=== PATIENT | male | born 1960 | race Caucasian/White ===

== ENCOUNTER → 2017-06-29 | Outpatient (CLI) | payer OTHER ==
[2017-06-29 19:16] LABS: ALBUMIN 3.8 gm/dl (3.4-5.0); TOTAL PROTEIN 7.7 gm/dl (6.4-8.2)
== END | disposition home or self-care (01) ==
LOC: C.LABMFLN 12:00
PROVIDERS: ATTEND Family Medicine
DX: R74.8 Abnormal levels of other serum enzymes (principal)

== ENCOUNTER → 2017-07-28 | Outpatient (CLI) | payer OTHER ==
[2017-07-28 18:11] LABS: BASO % 0.5 %; BASO ABS # 0.03 K/uL (0-0.2); EOS % 1.2 %; EOS ABS # 0.08 K/uL (0-0.5); HEMATOCRIT 40.6 % (42-52); HEMOGLOBIN 13.6 g/dL (14.0-18.0); IG# 0.01 K/uL (0.00-0.02); LYMPH % 29.2 %; LYMPH ABS # 1.87 K/uL (1.2-3.4); MEAN CELL VOLUME 95.3 fL (80-100); MEAN CORPUSCULAR HEMOGLOBIN 31.9 pg (25-34); MEAN CORPUSCULAR HGB CONC 33.5 g/dl (32-36); MEAN PLATELET VOLUME 11.1 fL (7.4-10.4); MONO % 8.7 %; MONO ABS # 0.56 K/uL (0.11-0.59); NEUT % 60.2 %; NEUT ABS # 3.86 K/uL (1.4-6.5); PLATELET COUNT 198 K/uL (130-400); RED CELL DISTRIBUTION WIDTH CV 12.9 % (11.5-14.5); RED CELL DISTRIBUTION WIDTH SD 44.5 fL (36.4-46.3); WHITE BLOOD COUNT 6.41 K/uL (4.8-10.8)
[2017-07-28 18:32] LABS: ALBUMIN 3.6 gm/dl (3.4-5.0); ALT/SGPT 20 U/L (12-78); AST/SGOT 18 U/L (15-37); BLOOD UREA NITROGEN 7 mg/dl (7-18); CALCIUM 9.7 mg/dl (8.5-10.1); CARBON DIOXIDE 26 mmol/L (21-32); CHOLESTEROL 212 mg/dl (0-200); CREATININE 0.81 mg/dl (0.60-1.40); GLUCOSE 94 mg/dl (70-99); POTASSIUM 3.6 mmol/L (3.5-5.1); SODIUM 136 mmol/L (136-145)
[2017-07-28 18:35] LABS: ALKALINE PHOSPHATASE 81 U/L (45-117); LDL CHOLESTEROL CALCULATED 156 mg/dl; TOTAL PROTEIN 7.8 gm/dl (6.4-8.2)
[2017-07-29 06:30] LABS: HEMOGLOBIN A1C 5.6 % (4.5-5.6)
== END | disposition home or self-care (01) ==
LOC: C.LABMFLN 10:43
PROVIDERS: ATTEND Family Medicine
DX: J34.89 Other specified disorders of nose and nasal sinuses (principal); E87.1 Hypo-osmolality and hyponatremia; E78.5 Hyperlipidemia, unspecified; I73.9 Peripheral vascular disease, unspecified; R73.09 Other abnormal glucose

== ENCOUNTER → 2017-08-25 | Outpatient (CLI) | payer OTHER ==
[2017-08-25 12:36] LABS: BASO % 0.8 %; BASO ABS # 0.05 K/uL (0-0.2); EOS % 2.4 %; EOS ABS # 0.15 K/uL (0-0.5); HEMATOCRIT 37.4 % (42-52); HEMOGLOBIN 13.2 g/dL (14.0-18.0); IG# 0.01 K/uL (0.00-0.02); LYMPH % 40.1 %; LYMPH ABS # 2.49 K/uL (1.2-3.4); MEAN CELL VOLUME 91.7 fL (80-100); MEAN CORPUSCULAR HEMOGLOBIN 32.4 pg (25-34); MEAN CORPUSCULAR HGB CONC 35.3 g/dl (32-36); MEAN PLATELET VOLUME 11.1 fL (7.4-10.4); MONO % 7.4 %; MONO ABS # 0.46 K/uL (0.11-0.59); NEUT % 49.1 %; NEUT ABS # 3.05 K/uL (1.4-6.5); PLATELET COUNT 169 K/uL (130-400); RED CELL DISTRIBUTION WIDTH CV 13.2 % (11.5-14.5); RED CELL DISTRIBUTION WIDTH SD 43.9 fL (36.4-46.3); WHITE BLOOD COUNT 6.21 K/uL (4.8-10.8)
== END | disposition home or self-care (01) ==
LOC: C.LABMFLN 09:10
PROVIDERS: ATTEND Family Medicine
DX: E78.5 Hyperlipidemia, unspecified (principal)

== ENCOUNTER → 2017-11-19 | Outpatient (CLI) | payer OTHER ==
[2017-11-19 13:18] LABS: BASO ABS # 0.08 K/uL (0-0.2); EOS % 3.4 %; EOS ABS # 0.26 K/uL (0-0.5); HEMATOCRIT 37.7 % (42-52); HEMOGLOBIN 12.6 g/dL (14.0-18.0); IG# 0.01 K/uL (0.00-0.02); LYMPH % 28.9 %; LYMPH ABS # 2.21 K/uL (1.2-3.4); MEAN CELL VOLUME 94.5 fL (80-100); MEAN CORPUSCULAR HEMOGLOBIN 31.6 pg (25-34); MEAN CORPUSCULAR HGB CONC 33.4 g/dl (32-36); MEAN PLATELET VOLUME 11.2 fL (7.4-10.4); MONO % 6.4 %; MONO ABS # 0.49 K/uL (0.11-0.59); NEUT % 60.2 %; PLATELET COUNT 177 K/uL (130-400); RED CELL DISTRIBUTION WIDTH CV 14.1 % (11.5-14.5); RED CELL DISTRIBUTION WIDTH SD 48.9 fL (36.4-46.3); WHITE BLOOD COUNT 7.65 K/uL (4.8-10.8)
[2017-11-19 13:46] LABS: ALBUMIN 4.1 gm/dl (3.4-5.0); ALKALINE PHOSPHATASE 80 U/L (45-117); ALT/SGPT 15 U/L (12-78); AST/SGOT 16 U/L (15-37); BLOOD UREA NITROGEN 9 mg/dl (7-18); CALCIUM 9.1 mg/dl (8.5-10.1); CARBON DIOXIDE 26 mmol/L (21-32); CREATININE 0.71 mg/dl (0.60-1.40); GLUCOSE 91 mg/dl (70-99); POTASSIUM 4.2 mmol/L (3.5-5.1); SODIUM 132 mmol/L (136-145); TOTAL PROTEIN 8.2 gm/dl (6.4-8.2)
== END | disposition home or self-care (01) ==
LOC: C.LABMFLN 10:15
PROVIDERS: ATTEND Family Medicine
DX: R63.4 Abnormal weight loss (principal); R74.8 Abnormal levels of other serum enzymes; D50.0 Iron deficiency anemia secondary to blood loss (chronic); M25.519 Pain in unspecified shoulder

== ENCOUNTER → 2017-12-23 | Outpatient (CLI) | payer OTHER ==
[2017-12-23 12:51] LABS: BASO % 0.9 %; BASO ABS # 0.06 K/uL (0-0.2); EOS % 1.6 %; EOS ABS # 0.11 K/uL (0-0.5); HEMATOCRIT 38.9 % (42-52); IG# 0.02 K/uL (0.00-0.02); LYMPH % 33.3 %; LYMPH ABS # 2.32 K/uL (1.2-3.4); MEAN CELL VOLUME 92.6 fL (80-100); MEAN CORPUSCULAR HGB CONC 33.4 g/dl (32-36); MEAN PLATELET VOLUME 10.7 fL (7.4-10.4); MONO % 6.3 %; MONO ABS # 0.44 K/uL (0.11-0.59); NEUT % 57.6 %; NEUT ABS # 4.01 K/uL (1.4-6.5); PLATELET COUNT 171 K/uL (130-400); RED CELL DISTRIBUTION WIDTH CV 13.5 % (11.5-14.5); RED CELL DISTRIBUTION WIDTH SD 45.7 fL (36.4-46.3); WHITE BLOOD COUNT 6.96 K/uL (4.8-10.8)
[2017-12-23 13:25] LABS: ALKALINE PHOSPHATASE 79 U/L (45-117); ALT/SGPT 24 U/L (12-78); AST/SGOT 17 U/L (15-37); BLOOD UREA NITROGEN 15 mg/dl (7-18); CALCIUM 9.4 mg/dl (8.5-10.1); CARBON DIOXIDE 26 mmol/L (21-32); CHOLESTEROL 160 mg/dl (0-200); CREATININE 0.74 mg/dl (0.60-1.40); GLUCOSE 100 mg/dl (70-99); LDL CHOLESTEROL CALCULATED 95 mg/dl; POTASSIUM 3.9 mmol/L (3.5-5.1); SODIUM 135 mmol/L (136-145); TOTAL PROTEIN 7.9 gm/dl (6.4-8.2)
== END | disposition home or self-care (01) ==
LOC: C.LABMFLN 08:29
PROVIDERS: ATTEND Family Medicine
DX: D50.0 Iron deficiency anemia secondary to blood loss (chronic) (principal); E78.5 Hyperlipidemia, unspecified; M79.1 Myalgia

== ENCOUNTER 2025-02-10 08:16 | Observation (INO) ==
--- NOTE | 2025-02-10 09:44 | Post Anesthesia Assessment ---
Date of Service February 10, 2025 Post Sedation Assessment Vital Signs Temp Pulse Resp BP Pulse Ox O2 Del Method 02/10/25 08:27 97.7 F 56 L 16 173/63 H 98 Room Air Recovery Score Activity: Moves 4 extremities Respiration: Deep Breath/Cough Circulation: +/-20% PreAnes Value Consciousness: Fully Awake Oxygen Saturation: O2 needed for >90% Discharge Sedation Level of Care: Fast Track Phase II
--- NOTE | 2025-02-10 09:49 | Endovascular Procedure Note ---
PG Endovascular Procedure Rpt Pre & Post Diagnosis Peripheral arterial disease I identified the patient and participated in the time-out.: Yes Procedure Aortogram Bilateral lower extremity angiography Angioplasty distal SFA/popliteal with intravascular lithotripsy and drug-eluting balloon Closure device placement Moderate sedation Surgeon Thang Wei MD Aluminum Boats Assembler Durga Estimated Blood Loss 25 Findings See Below Abdominal aorta--no significant aneurysmal or stenotic disease Right lower extremity-- -Common iliacwidely patent -External iliacwidely patent -Internal iliacwidely patent -TRANSFERRER, profunda widely patent -SFAmild diffuse disease with focal, calcified 90% distal stenosis -Poplitealmild diffuse disease -ATApatent -PTApatent -Peronealpatent Left lower extremity-- -Common iliacwidely patent -External iliacwidely patent -Internal iliacwidely patent -TRANSFERRER, profunda widely patent -SFAmild diffuse disease, 98% focal calcified distal stenosis -Poplitealmild to moderate proximal to mid disease up to 40% -ATA75% ostial, 90% proximal. Distal vessel fills briskly just above the ankle via collaterals from peroneal -PTAwidely patent into the foot -Peronealwidely patent in the ankle and provides collaterals to SHYAM -DPAwidely patent into the forefoot, medial/lateral plantar arteries patent with intact pedal arch Anesthesia Type RN Sedation Radiation Exposure (mGv) Radiation (mGy): 410 Contrast Contrast: 100 Complications none Disposition Accompanied Patient To Recovery: No Disposition: Turntable Operator Holding Description of Procedure Right TRANSFERRER access obtained under ultrasound guidance, short 5Fr sheath placed Abdominal aortogram and proximal left lower extremity angiogram performed with RIM catheter. Selective angiography with quick cross catheter placed in left mid SFA 6 Fr 65 cm destination sheath placed from right TRANSFERRER to left SFA. Distal SFA stenosis crossed with 0.14 command wire and quick cross support catheter. Angioplasty of distal SFA/popliteal with 3.0 balloon Left distal SFA/proximal popliteal dilated with 5.0 intravascular lithotripsy (shockwave, 320 pulses). [] stented with Post procedure good angiographic result, no evidence of dissection and brisk [] vessel run-off. Contrast used: [] Moderate sedation: [] Access closure: [] Summary: 1. [] lower extremity -- [] 2. [] extremity -- [] 3. Successful angioplasty/atherectomy/Supera stent placement to []. Final result: [] Recommendations: Continue DAPT with ASA/Clopidogrel for 1 months Follow-up non-invasive vascular testing in 2 weeks. I attest to the content of the Intraoperative Record and any orders documented therein. Any exceptions are noted below.
--- NOTE | 2025-02-10 09:53 | Pre Anesthesia Assessment ---
Date of Service February 10, 2025 Pre Sedation Assessment Vital Signs Temp Pulse Resp BP Pulse Ox O2 Del Method 02/10/25 08:27 97.7 F 56 L 16 173/63 H 98 Room Air Cardiovascular + regular rate Respiratory + respiratory effort normal Pre-Sedation Airway Assessment Smoking Status: Never smoker Hx Sleep Apnea: No Short, Thick Neck: No Thyromental Distance: > or= 3.5 Finger Breadths Oral Cavity: + WNL Mallampati Class: III ASA: ASA3 NPO Status Date of Last Intake of Fluids: 02/09/25 Time of Last Intake of Fluids: 20:00 Date of Last Intake of Solid Food: 02/09/25 Time of Last Intake of Solid Foods: 20:00 Procedure Planning Contraindications for Sedation: none Current Medications Reviewed: Yes Notes The planned sedation has been discussed with the patient. Informed Consent was obtained. I have identified the patient, determined the appropriateness of sedation and have assessed the patient immediately prior to the procedure. All medicine(s) and interventions are by my order.
--- NOTE | 2025-02-10 09:53 | History & Physical Bridge Note ---
Date of Service February 10, 2025 History & Physical Bridge Note I have examined the patient, reviewed the History & Physical and in the interval since the performance of the History & Physical I have noted the following changes of clinical significance: no changes noted
[2025-02-10] MEDS: HEPARIN (PORCINE) 1000 UNIT/ML 10 ML (CATH LAB USE ONLY) ONE ×2 (13:20→13:22)
[2025-02-10] MEDS: OPTIRAY 350 ONE (13:20)
[2025-02-10] MEDS: MIDAZOLAM HCL 1 MG/ML 2ML VIAL ONE ×4 (13:20→13:22)
[2025-02-10] MEDS: niCARdipine 2,000 MCG/20 ML SYR ONE (13:21)
[2025-02-10] MEDS: NITROGLYCERIN/D5W 100MCG/ML 20ML SYR ONE (13:21)
[2025-02-10] MEDS: CLOPIDOGREL BISULFATE 300 MG TAB ONE (13:30)
[2025-02-10] MEDS: MoRPHine SULFATE 2 MG/ML CARP ONE (13:40)
[2025-02-10] MEDS: ACETAMINOPHEN 500 MG TAB ONE (13:40)
[2025-02-10] MEDS ORDERED: ATROPINE SULFATE 0.1 MG/ML 10ML SYR IV PRN (14:09)
[2025-02-10] MEDS ORDERED: NITROGLYCERIN SL 0.4 MG/TAB TAB SL PRN (14:09)
[2025-02-10] MEDS ORDERED: ALUMINUM/MAGNESIUM SUSP 30 ML UDC PO PRN (14:09)
[2025-02-10] MEDS ORDERED: MELATONIN 3 MG TAB PO PRN (14:09)
--- NOTE | 2025-02-10 14:09 | Cardiac Catheterization ---
[facility] Data: Pipe Roller Cardiac Status Clinical evaluation leading to the procedure CAD Presenation: Stable angina Diagnostic Physicians Name: Thang Wei MD Closure Device Recommendations: PCI without planned CABG Cardiac Cath Procedure Full Procedure Date February 10, 2025 Pre-Procedure Diagnosis Pre-Procedure Diagnosis: Angina and Arrhythmia AUC Score AUC Score: 7 Post-Procedure Diagnosis Post-Procedure Diagnosis: Severe CAD and Normal Intracardiac Pressures Procedure(s) Performed Procedure(s) Performed: Coronary Angiography, Left Heart Cath, Drug Eluting Stent, IVUS and Procedure (Intravascular lithortripsy) Analytical Statistician Thang Wei MD Cap Cutter(s) Showers Estimated Blood Loss Estimated Blood Loss: 30 Medication(s) Medication(s): Clopidogrel, Fentanyl, Heparin, Lidocaine 1%, Nicardipine, Nitroglycerin and Versed Summary of Findings Indication: Exertional angina, fatigue, presyncope. Exercise-induced 2-1 AV block Access: 6 Fr slender right radial artery, 6 Fr right CFV Catheters: [place], EBU 3.5 guide, JR4 guide, hockey-stick guide Findings: LM -normal caliber, eccentric calcified plaque in distal segment with 30% stenosis extending into circumflex ostium LAD -moderate caliber, 30% proximal, 30% mid segment disease. Distal vessel ext ends around apex. D2 without significant disease. Circumflex -medium caliber, hazy ostial 40% stenosis consistent with calcified eccentric plaque. Medium/distal AV groove circumflex without significant disease. Medium OM2 without disease. RCA -dominant, medium caliber, heavily calcified, 95% ostial, 90% proximal stenosis. 70% mid stenosis at takeoff of acute marginal. 40% latemid into distal disease. Small RPDA with 50% ostial stenosis. Right PLB without disease. LVEDP -10 IVUS of left main/ostial circumflex/ostial LAD Left main cannulated with EBU 3.5 guide BMW wire placed into distal circumflex Ayoub IVUS catheter placed to mid circumflex. Pullback revealed eccentric moderate (<40%) calcified plaque at ostium extending back to distal left main. LMCA with concentric calcified disease <30% in distal segment. Calcified ostial LMCA <30%. BMW wire removed from circumflex and redirected into LAD. IVUS catheter placed to mid LAD and pullback revealed diffuse mild calcified disease. No significant LAD ostial disease. Catheter/wire removed. Repeat angiography revealed no apparent complications. Decision to proceed with PCI of RCA. -- PCI of RCA-- Antithrombotic therapy: Heparin, clopidogrel Procedure: RCA cannulated with JR4 guide Pre-procedure flow TRACEE 3 6 Fr sheath placed into right CFV in case need of temporary pacing. Financial Reporting Advisor 50 wire passed across lesion into distal vessel Mid RCA lesion and proximal/ostial RCA predilated with 2.0 and 2.5 compliant balloons Mid RCA and proximal/ostial RCA further dilated with intravascular lithotripsy (shockwave, 100 pulses). Mid RCA stented with 3.0 x 15 mm [place] drug-eluting stent Ostial/proximal RCA stented with 3.0 x 18 mm Xience drug-eluting stent Stents post-dilated with 3.5 noncompliant balloon IC vasodilators administered for spasm With attempt at repeat IVUS, wire pulled back into aorta Stent/RCA eventually rewired through hockey-stick guide with new car pilot 50 wire Proximal/ostial RCA stent further postdilated with 4.0 NC balloon Repeat IVUS showed well-expanded, well apposed stent with stent struts extending back across ostium just into aorta Attempt made to further dilate with 4.0 ostial flash balloon Post procedure TRACEE 3 flow, stents well expanded with minimal residual stenosis and no apparent cardiac complications. Arterial Closure: TR band. Venous closure with 6 Fr Mynx Summary: 1. Multivessel coronary artery disease - 95% ostial/proximal RCA, 75% mid RCA 20-30% ostial and distal left main, 40% eccentric/calcified ostial circumflex (nonobstructive by IVUS). 2. Normal intracardiac filling pressure 3. Successful PCI of ostial/proximal RCA with intravascular lithotripsy and single drug-eluting stent (3.0 x 18 mm Xience; postdilated with 4.0 NC and ostial flash balloon). 4. Successful PCI of mid RCA with intravascular lithotripsy and single drug- eluting stent (3.0 x 15 mm [place]; postdilated with 3.5 NC). Recommendations: To PCU for continued monitoring Loaded with clopidogrel 600 mg in Pipe Roller Continue dual-antiplatelet therapy for at least 1 year Continue statin, and ASCVD risk factor modification Hemodynamics Rest Ao:: 100/56/52 Final Ao: 138/69/90 LV: 115/10 Recommendations Recommendations: PCI without planned CABG Radiation Exposure (mGy) 4472 Contrast (mls) 225 Anesthesia Moderate [id number] Procedural Complication(s) None Disposition PCU I attest to the content of the Intraoperative Record and any orders documented therein. Any exceptions are noted below. [facility] Card Cath Procedure Codes Cardiac Catheterization Procedure 1: Cardiovascular Cath Procedures: 38631 Coronaries and LHC (+/-LV) Therapeutic Services & Ancillary Procedure 1: Cardiovascular Tx and Anc Procedures: 32083 IV Ultrasound (Coronary or Graft) Procedure 2: Cardiovascular Tx and Anc Procedures: 21543 IV Ultrasound Ea addl vessel Procedure 3: Cardiovascular Tx and Anc Procedures: 09380 IV Ultrasound Ea addl vessel Moderate Sedation Procedure 1: Sedation/Anesthesia: 20025 Mod Sedation by the same physician;Init15 Min Child Age 5 & Up Procedure 2: Sedation/Anesthesia: 50139 Mod Sedation by the same physician; Ea [id number] Minutes Angioplasty Procedure 1: Cardiovascular Angioplasty Procedures: 40898 Perq Trluml Coronry Lithotrp Stenting Procedure 1: Cardiovascular Stent Procedures: 79294 Perc transcatheter placement of intracoronary stent(s), with ang PG Care Time/CCT Total # of Minutes Spent Total Time Spent with Patient: Total time spent is greater than 50% in coordination of care (as documented) at patient's floor/unit and/or counseling patient:
[2025-02-10] MEDS: ONDANSETRON INJ 2 MG/ML 2 ML VIAL IV PRN (17:25)
[2025-02-10] MEDS: SODIUM CHLORIDE 0.9% 1,000 ML IV SCH (17:45)
[2025-02-10] MEDS: SODIUM CHLORIDE 0.9% 500 ML IV ONE (18:21)
[2025-02-11] MEDS: CLOPIDOGREL BISULFATE 75 MG TAB PO SCH (08:00)
[2025-02-11] MEDS: ASPIRIN 81 MG ECTAB PO SCH (08:00)
[2025-02-11] MEDS: GABAPENTIN 300 MG CAP PO SCH (08:00)
[2025-02-11] MEDS: ATORVASTATIN 40 MG TAB PO SCH (08:00)
[2025-02-11 08:14] LABS: Hematocrit (blood only) 38.2 % (42.0-52.0); Hemoglobin 12.4 g/dl (14.0-18.0); Immature Granulocytes # (auto) 0.04 K/uL (0.01-0.20); Immature Granulocytes % (auto) 0.4 %; Mean Corpuscular Hemoglobin 29.2 pg (25.0-34.0); Mean Corpuscular Volume 89.9 fL (80.0-100.0); Platelet Count 146 K/uL (130-400); RDW Standard Deviation 45.2 fL (36.4-46.3); Red Blood Count 4.25 M/uL (4.70-6.10); White Blood Count 8.93 K/ul (4.8-10.8)
[2025-02-11 08:29] LABS: Anion Gap 5.0 (3-11); Blood Urea Nitrogen 13.0 mg/dl (6-23); Calcium 9.0 mg/dl (8.6-10.3); Carbon Dioxide 29.0 mmol/L (21-32); Chloride 102.0 mmol/L (98-107); Creatinine Clr Calc Pharmacy 89.6 ml/min; Glucose 120.0 mg/dl (70-99(Fasting)); Potassium 4.2 mmol/L (3.5-5.1); Sodium 136.0 mmol/L (136-145)
[2025-02-11] MEDS ORDERED: LOSARTAN POTASSIUM 25 MG TAB PO SCH (09:00)
--- NOTE | 2025-02-11 10:55 | Cardiology Consultation ---
Date of Consultation February 11, 2025 History of Present Illness Reason for Consultation: Adams Hobbs is a 64 year old male with PMHx abnormal treadmill stress test with 2:1 AV block with exertion, sinus bradycardia, HTN, HLD, PAD s/p aortofemoral 2018 known L SFA occlusion, reformed tobacco use, COPD who presented to [facility] yesterday for planned cardiac catheterization for evaluation of 2:1 AV block during treadill exercise stress test on 02/03/2025. Cardiac CATH yesterday with DR Wei revealed 95% ostial/proximal RCA occlusion 75% mid RCA occlusion with successful KELLEY x1 ostial/proximal RCA with intravascular lithotripsy and KELLEY x1 to mid RCA with intravascular lithotripsy. Attending Physician: Thang Wei MD Allergies Allergy/AdvReac Type Severity Reaction Status Date / Time No Known Allergies Allergy Unverified 01/27/25 15:34 Home Medications Medication Instructions Recorded Confirmed Type aspirin 81 mg tablet,delayed 81 mg PO DAILY #90 tabs 12/06/18 02/10/25 Rx release albuterol sulfate 90 mcg/actuation 2 puff inhalation Q6H PRN 10/02/21 02/10/25 Rx aerosol inhaler (Ventolin HFA) shortness of breath or wheezing #18 grams losartan 25 mg tablet 25 mg PO DAILY #90 tabs 03/02/24 02/10/25 Rx umeclidinium 62.5 mcg/actuation 1 inh inhalation DAILY 08/31/24 02/10/25 History blister powder for inhalation (Incruse Ellipta) gabapentin 300 mg capsule 300 mg PO DAILY #90 caps 11/10/24 02/10/25 Rx pravastatin 20 mg tablet 20 mg PO DAILY #90 tabs 01/04/25 02/10/25 Rx pravastatin 40 mg tablet 40 mg PO DAILY #90 tabs 01/19/25 02/10/25 Rx atorvastatin 40 mg tablet 40 mg PO QAM #30 tabs 02/11/25 Rx clopidogrel 75 mg tablet 75 mg PO QAM #30 tabs 02/11/25 Rx Patient History Medical History COPD exacerbation No pertinent family history Prophylactic vaccination against streptococcus pneumoniae and influenza Nevus, atypical Myalgia Elevated liver enzymes Blood loss anemia Surgical History H/O right inguinal hernia repair S/P aortobifemoral bypass surgery Family History Brother Congenital kidney disease Mother Stroke Dyslipidemia Father Lung disease Social History Smoking Status: Never smoker Tobacco Type: Cigarettes and E-cigarettes / Vaping Age Started Using Tobacco: 16; Age Quit Using Tobacco: 57; packs per day: 2.5; Cigarettes Per Day: 80-110 pack years; Hx Alcohol Use: No Hx Substance Use: No Preferred Language: Macanese Communication Ability: Effective Recruiter Coordinator Required: No Beliefs That Will Affect Care: None marital status: Current Living Situation: Spouse How many Children do You have: 0 Feels Safe at Home: Yes Safety Concerns: Feels Safe At This Time Assistive Devices: None Results & Data Vital Signs (Past 12 Hours) Vital Signs Temp Pulse Pulse Resp BP Pulse Ox O2 Del Method 02/11/25 08:00 36.3 C L 79 16 105/57 L 97 Room Air 02/11/25 07:33 51 L 02/11/25 03:30 36.6 C 69 16 93/54 L 95 Room Air 02/10/25 23:24 36.7 C 68 16 101/50 L 95 Room Air Diagnostic Findings CARDIA CATH Dr Wei 02/10/2025 1. Multivessel CAD - 95% ostial/proximal RCA occlusion 75% mid RCA -20-30% ostial and distal left main, 40% eccentric/calcified ostial circumflex (nonobstructive by IVUS) 2. Normal intracardiac filling pressure 3. successful PCI to ostial/proximal RCA with intravascular lithotripsy and KELLEY x1 4. Successful PCI to mid RCA with intravascular lithotripsy and single KELLEY Treadmill stress test 02/03/2025 Abnormal treadill stress tset as patient went to 2:1 AV block at 3 minutes 30 seconds into exercise PG Care Time/CCT Total # of Minutes Spent Total Time Spent with Patient: Total time spent is greater than 50% in coordination of care (as documented) at patient's floor/unit and/or counseling patient: Coding
--- NOTE | 2025-02-11 11:20 | Discharge Summary ---
Date of Service February 11, 2025 Admission HPI Per Admitting Provider Mr. Hobbs is a very pleasant 64-year-old man with a history of peripheral arterial disease post aortobifem bypass, COPD, reformed tobacco abuse, dyslipidemia, hypertension who was referred for cardiac catheterization by Dr. Barrera. He is followed by Dr. Cho for primary care. Recently seen for recurrent near syncopal episodes. Underwent stress test on which was shown to have 2-1 AV block. Cardiac catheterization recommended prior to possible pacemaker. Discharge Data Procedures Performed Operation Date: 02/10/25 09:30 Actual Procedures p Cath, Left with Cors and Vent - Thang Wei MD p Drug Eluting Stent SGl Vessel - Thang Wei MD s Cineradiography w/Routine Exam - MD machelle Ramos IVUS Coronary Single Vessel - Thang Wei MD Hospital Course (1) CAD (coronary artery disease): Patient underwent left heart catheterization/coronary angiography via right radial artery. Findings: 1. Multivessel coronary artery disease - 95% ostial/proximal RCA, 75% mid RCA 20-30% ostial and distal left main, 40% eccentric/calcified ostial circumflex (nonobstructive by IVUS). 2. Normal intracardiac filling pressure 3. Successful PCI of ostial/proximal RCA with intravascular lithotripsy and single drug-eluting stent (3.0 x 18 mm Xience; postdilated with 4.0 NC and ostial flash balloon). 4. Successful PCI of mid RCA with intravascular lithotripsy and single drug- eluting stent (3.0 x 15 mm [place]; postdilated with 3.5 NC). Postprocedure he was admitted for observation. Initially postprocedure had >4- second asymptomatic pause on telemetry in the setting of diaphoresis/nausea and hypotension to 80s. Event thought to be vasovagal and responded to IV fluids/antiemetics. For the remainder of hospital course remained electrically stable with only sinus bradycardia and frequent PACs. He remained chest pain- free during hospital course. On day of discharge he was feeling well. Walked in the halls and endorsed improved exertional shortness of breath. No chronotropic incompetence with w alking. No apparent access site complications. Postprocedure hemoglobin 12.4 down from 13.5 6 months ago. Renal function stable. He was discharged to home on DAPT with aspirin, clopidogrel. With borderline blood pressures in the 90s to low 100s losartan was held. His pravastatin was switched to atorvastatin 40 mg daily. Recommend targeting LDL <55. He will follow-up with Dr. Barrera as to whether he still needs additional ambulatory monitoring/pacemaker. Discharge Instructions Home Medications aspirin 81 mg tablet,delayed release 81 mg PO DAILY #90 tabs 12/06/18 [Rx Confirmed 02/10/25] albuterol sulfate 90 mcg/actuation aerosol inhaler (Ventolin HFA) 2 puff inhalation Q6H PRN shortness of breath or wheezing #18 grams 10/02/21 [Rx Confirmed 02/10/25] umeclidinium 62.5 mcg/actuation blister powder for inhalation (Incruse Ellipta) 1 inh inhalation DAILY 08/31/24 [History Confirmed 02/10/25] gabapentin 300 mg capsule 300 mg PO DAILY #90 caps 11/10/24 [Rx Confirmed 02/10/25] atorvastatin 40 mg tablet 40 mg PO QAM #30 tabs 02/11/25 [Rx] clopidogrel 75 mg tablet 75 mg PO QAM #30 tabs 02/11/25 [Rx] Coding Level of Care Code 65712 IN/OBS DISCH 30 MIN/LESS Diagnoses CAD (coronary artery disease) I25.10
[2025-02-11 11:42] VITALS: BP 112/69; PULSE 54; RESP 18; TEMP 97.7; O2SAT 98
--- NOTE | 2025-02-12 06:38 | Electrocardiogram Report ---
Test Reason : Blood Pressure : */* mmHG Vent. Rate : 52 BPM Atrial Rate : 52 BPM P-R Int : 160 ms QRS Dur : 84 ms QT Int : 432 ms P-R-T Axes : 69 77 78 degrees QTcB Int : 401 ms Sinus bradycardia Otherwise normal ECG When compared with ECG of 10-Feb-2025 13:40, Premature supraventricular complexes are no longer Present Confirmed by Hardeep Gan ([id number]) on 02/12/2025 6:38:00 AM Referred By: Rupa Barrera Confirmed By: Hardeep Gan
--- NOTE | 2025-02-12 19:41 | Electrocardiogram Report ---
Test Reason : Blood Pressure : */* mmHG Vent. Rate : 59 BPM Atrial Rate : * BPM P-R Int : * ms QRS Dur : 82 ms QT Int : 420 ms P-R-T Axes : * 79 75 degrees QTcB Int : 415 ms Sinus bradycardia with Premature supraventricular complexes in a pattern of bigeminy Abnormal ECG No previous ECGs available Confirmed by Hardeep Gan ([id number]) on 02/12/2025 7:40:59 PM Referred By: Rupa Barrera Confirmed By: Hardeep Gan
== END 2025-02-11 12:29 | disposition home or self-care (01) | DRG 324 ==
LOC: CC 08:16 → INTOOBSV 14:09 → 2S 14:09